=== PATIENT | male | born 1975 | race Caucasian/White ===

== ENCOUNTER 2021-10-13 15:16 | Observation (INO) ==
[2021-10-13] MEDS ORDERED: Ketorolac 30 MG/ML VIAL IVP ONE (15:46)
[2021-10-13] MEDS ORDERED: Ampicillin/Sulbactam 3,000 MG in 0.9 % Sodium Chloride Mini Bag 100 ML IVPB ONE (15:46)
[2021-10-13 16:13] LABS: Basophils % 0.5 %; Eosinophils # 0.3 K/mcL (0.0-0.6); Eosinophils % 7.1 %; Hematocrit 33.8 % (37.5-50.1); Hemoglobin 10.8 g/dL (12.9-16.9); Immature Granulocytes % 0.3 % (0-4); Lymphocytes # 0.3 K/mcL (0.6-4.6); Lymphocytes % 8.4 %; Mean Corpuscular Volume 81.3 fL (83.0-100.0); Mean Platelet Volume 11.3 fL (9.4-12.4); Monocytes # 0.5 K/mcL (0.0-1.3); Monocytes % 11.9 %; Neutrophils # 2.7 K/mcL (1.6-8.9); Red Blood Count 4.16 M/mcL (4.19-5.50); Red Cell Distribution Width 15.1 % (11.5-14.5); Segmented Neutrophils % 71.8 %; White Blood Count 3.8 K/mcL (4.3-11.1)
[2021-10-13 16:19] LABS: INR 1.1; Prothrombin Time 12.4 Seconds (9.4-12.1)
[2021-10-13 16:21] LABS: Activated Partial Thrombo Time 31.5 Seconds (26.0-36.0)
[2021-10-13 16:22] LABS: Platelet Count 64 K/mcL (140-400)
[2021-10-13 16:30] LABS: Alanine Aminotransferase 32 Units/L (7-52); Albumin 4.3 g/dL (3.5-5.7); Albumin/Globulin Ratio 1.3 (1.1-2.2); Alkaline Phosphatase 97 Units/L (34-104); Aspartate Amino Transferase 36 Units/L (13-39); BUN/Creatinine Ratio 11 (6-26); Bilirubin,Total 0.3 mg/dL (0.3-1.0); Blood Urea Nitrogen 12 mg/dL (6-20); Calcium 9.6 mg/dL (8.6-10.3); Carbon Dioxide 28 mEq/L (23-29); Chloride 105 mEq/L (98-107); Globulin 3.4 g/dL (2.4-3.5); Glucose 104 mg/dL (70-105); Osmolality,Calculated 288 (280-300); Potassium 3.8 mEq/L (3.5-5.1); Sodium 139 mEq/L (136-145); Total Protein 7.7 g/dL (6.4-8.9); eGFR For African Americans > 60 (> 60); eGFR For Non-African Americans > 60 (> 60)
[2021-10-13] MEDS ORDERED: Vancomycin 1,500 MG in D5% in Water 250 ML IVPB ONE (16:35)
[2021-10-13] MEDS ORDERED: lisinopriL 10 MG TABLET PO STA (17:13)
[2021-10-13] MEDS ORDERED: *HR* Enoxaparin 100 MG/ML SYRINGE SQ STA (17:15)
[2021-10-13] MEDS ORDERED: Iopamidol - 370 500 ML MLS IVP ONE (17:27)
[2021-10-13] MEDS ORDERED: Vancomycin 1,000 MG in D5% in Water 250 ML IVPB ONE (19:31)
[2021-10-13] MEDS: Nicotine 14 MG PATCH.TD24 TD SCH (22:37)
[2021-10-13] MEDS: Sulfamethoxazole/Trimeth DS 1 EACH TABLET PO SCH (22:49)
[2021-10-13] MEDS: Ampicillin/Sulbactam 3,000 MG in 0.9 % Sodium Chloride Mini Bag 100 ML IVPB SCH (23:53)
[2021-10-14] MEDS: Ampicillin/Sulbactam 3,000 MG in 0.9 % Sodium Chloride Mini Bag 100 ML IVPB SCH ×4 (04:02→21:44)
[2021-10-14 04:35] LABS: Basophils % 0.3 %; Eosinophils # 0.4 K/mcL (0.0-0.6); Eosinophils % 12.3 %; Hematocrit 33.1 % (37.5-50.1); Hemoglobin 10.4 g/dL (12.9-16.9); Lymphocytes # 0.4 K/mcL (0.6-4.6); Lymphocytes % 10.4 %; Mean Corpuscular HGB Conc 31.4 g/dL (31.6-35.5); Mean Corpuscular Hemoglobin 25.6 pg (28.0-33.3); Mean Corpuscular Volume 81.3 fL (83.0-100.0); Mean Platelet Volume 12.1 fL (9.4-12.4); Monocytes # 0.4 K/mcL (0.0-1.3); Monocytes % 11.5 %; Red Blood Count 4.07 M/mcL (4.19-5.50); Red Cell Distribution Width 14.9 % (11.5-14.5); Segmented Neutrophils % 65.5 %; White Blood Count 3.6 K/mcL (4.3-11.1)
[2021-10-14 04:39] LABS: INR 1.1; Neutrophils # 2.4 K/mcL (1.6-8.9); Platelet Count 71 K/mcL (140-400); Prothrombin Time 11.9 Seconds (9.4-12.1)
[2021-10-14 04:40] LABS: Platelet Estimate Decreased (Normal)
[2021-10-14 04:42] LABS: Activated Partial Thrombo Time 33.7 Seconds (26.0-36.0)
[2021-10-14 04:50] LABS: BUN/Creatinine Ratio 11 (6-26); Blood Urea Nitrogen 10 mg/dL (6-20); Calcium 9.1 mg/dL (8.6-10.3); Carbon Dioxide 29 mEq/L (23-29); Chloride 105 mEq/L (98-107); Glucose 103 mg/dL (70-105); Osmolality,Calculated 285 (280-300); Potassium 3.8 mEq/L (3.5-5.1); Sodium 138 mEq/L (136-145); eGFR For African Americans > 60 (> 60); eGFR For Non-African Americans > 60 (> 60)
[2021-10-14] MEDS ORDERED: Vancomycin 500 MG in 0.9 % Sodium Chloride Mini Bag 100 ML IVPB ONE (06:00)
[2021-10-14] MEDS ORDERED: *HR* Enoxaparin 100 MG/ML SYRINGE SQ SCH (06:00)
[2021-10-14] MEDS: lisinopriL 20 MG TABLET PO SCH (08:55)
[2021-10-14] MEDS: Sulfamethoxazole/Trimeth DS 1 EACH TABLET PO SCH ×2 (08:55→21:44)
[2021-10-14] MEDS: Nicotine 14 MG PATCH.TD24 TD SCH ×2 (08:56→08:59)
[2021-10-14] MEDS: (Bictegrav/Emtricit/Tenofov Ala [Biktarvy 50-200-25 MG]) PO SCH (08:57)
[2021-10-14] MEDS ORDERED: lisinopriL 10 MG TABLET PO SCH (09:00)
[2021-10-14] MEDS ORDERED: Perflutren Lipid Microsphere 1.3 ML in 0.9 % Sodium Chloride 8.7 ML IVP PRN (09:28)
[2021-10-14] MEDS: BuPROPion SR (12 HR) 150 MG TABLET PO SCH (15:25)
[2021-10-14] MEDS ORDERED: Vancomycin 1,250 MG/262.5 ML IV.SOLN IVPB SCH (17:00)
[2021-10-15] MEDS: Ampicillin/Sulbactam 3,000 MG in 0.9 % Sodium Chloride Mini Bag 100 ML IVPB SCH ×2 (04:14→08:52)
[2021-10-15 04:18] LABS: Basophils % 0.8 %; Eosinophils # 0.4 K/mcL (0.0-0.6); Eosinophils % 16.7 %; Hematocrit 35.6 % (37.5-50.1); Hemoglobin 11.6 g/dL (12.9-16.9); Immature Granulocytes % 0.4 % (0-4); Lymphocytes # 0.5 K/mcL (0.6-4.6); Lymphocytes % 17.5 %; Mean Corpuscular HGB Conc 32.6 g/dL (31.6-35.5); Mean Corpuscular Hemoglobin 26.2 pg (28.0-33.3); Mean Corpuscular Volume 80.4 fL (83.0-100.0); Mean Platelet Volume 11.4 fL (9.4-12.4); Monocytes # 0.4 K/mcL (0.0-1.3); Monocytes % 14.8 %; Neutrophils # 1.3 K/mcL (1.6-8.9); Red Blood Count 4.43 M/mcL (4.19-5.50); Red Cell Distribution Width 14.8 % (11.5-14.5); Segmented Neutrophils % 49.8 %; White Blood Count 2.6 K/mcL (4.3-11.1)
[2021-10-15 04:34] LABS: BUN/Creatinine Ratio 12 (6-26); Blood Urea Nitrogen 13 mg/dL (6-20); Calcium 9.3 mg/dL (8.6-10.3); Carbon Dioxide 27 mEq/L (23-29); Chloride 103 mEq/L (98-107); Glucose 85 mg/dL (70-105); Osmolality,Calculated 281 (280-300); Potassium 4.1 mEq/L (3.5-5.1); Sodium 136 mEq/L (136-145); eGFR For African Americans > 60 (> 60); eGFR For Non-African Americans > 60 (> 60)
[2021-10-15] MEDS ORDERED: Vancomycin 500 MG in 0.9 % Sodium Chloride Mini Bag 100 ML IVPB ONE (05:00)
[2021-10-15 05:19] LABS: Platelet Count 59 K/mcL (140-400)
[2021-10-15] MEDS ORDERED: *HR* Enoxaparin 40 MG/0.4 ML SYRINGE SQ SCH (06:00)
[2021-10-15 07:13] VITALS: RESP 16
[2021-10-15] MEDS: lisinopriL 20 MG TABLET PO SCH (08:51)
[2021-10-15] MEDS: Sulfamethoxazole/Trimeth DS 1 EACH TABLET PO SCH (08:52)
[2021-10-15] MEDS: (Bictegrav/Emtricit/Tenofov Ala [Biktarvy 50-200-25 MG]) PO SCH (08:52)
[2021-10-15] MEDS: BuPROPion SR (12 HR) 150 MG TABLET PO SCH (08:52)
[2021-10-15 11:08] VITALS: BP 138/90; PULSE 82; TEMP 98.1; O2SAT 98
[2021-10-15] MEDS: Nicotine 14 MG PATCH.TD24 TD SCH (11:25)
[2021-10-15] MEDS ORDERED: Vancomycin 1,500 MG/265 ML IV.SOLN IVPB SCH (17:00)
== END 2021-10-15 12:06 | disposition home or self-care (01) ==
LOC: EMEROOGRE 15:16 → INPGRE 15:16
PROVIDERS: ADMIT Family Medicine; ATTEND Family Medicine